=== PATIENT | male | born 1935 | race Caucasian/White ===

== ENCOUNTER 2017-11-04 08:38 | Observation (INO) | payer MEDICARE, OTHER ==
[2017-11-04 09:29] LABS: #Eosinphils 0.1 thou/uL (0.0-0.7); #Lymphocytes 1.8 thou/uL (1.20-3.40); #Monocytes 0.3 thou/uL (0.11-0.59); #Neutrophils 3.1 thou/uL (1.40-6.50); %Basophils 0.3 % (0.0-1.0); %Eosinophils 2.2 % (0.0-10.0); %Lymphocytes 33.8 % (21.0-51.0); %Monocytes 5.5 % (0.0-10.0); %Neutrophils 58.2 % (42.0-75.0); Hemoglobin 14.8 g/dL (14.0-18.0); Mean Corpuscular HGB CONC 33.5 g/dL (32.0-36.0); Mean Corpuscular Hemoglobin 31.7 pg (27.0-31.0); Mean Corpuscular Volume 94.4 fL (78.0-98.0); Mean Platelet Volume 7.3 fL (7.4-10.4); Platelet Count 195 thou/uL (130-400); RBC Distribution Width 11.9 % (11.5-14.5); Red Blood Cell (RBC) Count 4.69 mill/uL (4.70-6.10); White Blood Cell (WBC) Count 5.3 thou/uL (4.8-10.8)
--- NOTE | 2017-11-04 09:44 | RAD ---
SINGLE VIEW OF THE CHEST: Comparison: 05-15-14 History: Chest pain and tightness for two weeks. FINDINGS: Single view of the chest shows a normal sized cardiomediastinal silhouette. There is no evidence of c onsolidation, mass, or pleural effusion. The bones are unremarkable. IMPRESSION: No evidence of acute cardiopulmonary disease. POS: [facility]
[2017-11-04 09:51] LABS: ALT (SGPT) 11 U/L (8-55); AST (SGOT) 17 U/L (5-34); Albumin 4.3 g/dL (3.4-4.8); Alkaline Phosphatase 61 U/L (40-150); Anion Gap 13 mmol/L (10-20); BUN (Urea Nitrogen) 12 mg/dL (8.4-25.7); CK (CPK) 118 U/L (30-200); Calc. Creatinine Clearance 0 mL/min (70-130); Calcium 9.3 mg/dL (7.8-10.44); Carbon Dioxide 24 mmol/L (23-31); Chloride 108 mmol/L (98-107); Estimated GFR-MDRD 63; Globulin 1.9 g/dL (2.4-3.5); Glucose 113 mg/dL (83-110); Lipase 19 U/L (8-78); Protein, Total 6.2 g/dL (5.8-8.1); Sodium 141 mmol/L (136-145)
[2017-11-04 09:56] LABS: CKMB 2.4 ng/mL (0-6.6); Troponin I Less than 0.010 ng/mL (< 0.028)
[2017-11-04 13:19] LABS: Troponin I Less than 0.010 ng/mL (< 0.028)
[2017-11-04 14:29] VITALS: BMI 23.8
[2017-11-04] MEDS ORDERED: Prevnar 13-Val Conj/PF 0.5 ML SYRINGE IM ONE (15:15)
[2017-11-04 16:46] LABS: Troponin I Less than 0.010 ng/mL (< 0.028)
[2017-11-04] MEDS ORDERED: Ondansetron ODT 4 MG TAB PO PRN (20:12)
[2017-11-04] MEDS ORDERED: hydrALAZINE 20 MG/ML VIAL SLOW IVP PRN (20:12)
[2017-11-04] MEDS ORDERED: Ondansetron HCl/PF 4 MG/2 ML Vial IVP PRN (20:12)
[2017-11-04] MEDS ORDERED: Acetaminophen 500 MG TAB PO PRN (20:12)
[2017-11-04] MEDS ORDERED: cloNIDine 0.1 MG TAB PO PRN (20:12)
[2017-11-04] MEDS: Famotidine 20 MG TAB PO SCH (20:43)
[2017-11-04] MEDS ORDERED: Latanoprost 0.005% Ophth Soln 2.5 ml Bottle EA EYE SCH (21:00)
--- NOTE | 2017-11-05 02:34 | HP ---
DATE OF ADMISSION: 11/04/2017 PRIMARY CARE PROVIDER: John Navarro M.D. CHIEF COMPLAINT: Chest pain. HISTORY OF PRESENT ILLNESS: This is an 82-year-old male who presents to [facility] complaining of left-sided lateral chest wall pain. The patient states the she n is sharp in nature, lasting seconds, but improved with exercise or activity over the last 2 weeks. The patient denied taking any specific home remedies but has been consistent with his regular antihy pertensive regimen and daily aspirin 325 mg. The patient denied any recent trauma, injury, increased activity level, cough, fever, congestion. The patient states he is right hand dominant and denies a ny recent injury. The patient denies any left arm, jaw or diaphoresis associated with the pain. The patient states the quality is sharp in nature, localized to the outer pectoral region. The patient does admit to history of coronary artery disease undergoing cardiac stent placement x2 approximately 2009. The patient admits to prior dual antiplatelet therapy until approximately 3 years prior to thi s evaluation. The patient states his last stress test was approximately 5 years prior to this evalua tion. In the emergency room, the patient underwent general evaluation with serial troponin negative x3. The patient's initial workup was essentially unrevealing. PAST MEDICAL HISTORY: 1. Coronary artery disease status post cardiac stent placement x2. 2. Hypertension. 3. Hyperlipidemia. 4. History of renal lithiasis. 5. Hyperlipidemia. 6. History of prostate cancer. PAST SURGICAL HISTORY: 1. Status post cardiac stent placement x2. 2. Status post cardiac angioplasty. 3. Status post cholecystectomy. CURRENT MEDICATIONS: 1. Enteric-coated aspirin 325 mg daily. 2. Zetia 10 mg p.o. daily. 3. Latanoprost 0.005% 1 drop to each eye at bedtime. 4. Toprol-XL 100 mg p.o. daily. 5. Omeprazole 40 mg p.o. daily. 6. Altace 2.5 mg p.o. daily. 7. Crestor 40 mg p.o. daily. ALLERGIES: No known drug allergies. FAMILY HISTORY: Positive for hypertension. SOCIAL HISTORY: , resides in [place], [place]. 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 No current alcohol, tobacco or illicit drug use. Functional of all activities of daily living. Walks up to 2 miles daily. REVIEW OF SYSTEMS: The following complete review of systems was negative, unless otherwise mentioned in the HPI or below: Constitutional: Weight loss or gain, ability to conduct usual activities. Sk in: Rash, itching. Eyes: Double vision, pain. ENT/Mouth: Nose bleeding, neck stiffness, pain, ten derness. Cardiovascular: Palpitations, dyspnea on exertion, orthopnea. Respiratory: Shortness of breath, wheezing, cough, hemoptysis, fever or night sweats. Gastrointestinal: Poor appetite, abdomi nal pain, heartburn, nausea, vomiting, constipation, or diarrhea. Genitourinary: Urgency, frequency , dysuria, nocturia. Musculoskeletal: Pain, swelling. Neurologic/Psychiatric: Anxiety, depression . Allergy/Immunologic: Skin rash, bleeding tendency. Otherwise negative except as stated per HPI. PHYSICAL EXAMINATION: VITAL SIGNS: On admission, blood pressure 155/67, pulse 57, respiratory rate 16, temperature 98.5 de grees Fahrenheit, O2 saturation 96% on room air. GENERAL APPEARANCE: This is an 82-year-old female, alert and oriented x3, pleasant, conver kwaku, in no acute distress. HEENT: Pupils are equal, round, and reactive to light and accommodation. Extraocular muscles are in tact. No scleral icterus, no conjunctival injection. Nares patent. OP is clear. Teeth in good rep air. NECK: Supple, no cervical adenopathy, no thyromegaly, no carotid bruits, no JVD appreciated. Cervic al spine with full active and passive range of motion. No meningeal signs appreciated. CHEST: Lungs are clear to auscultation bilaterally. CARDIOVASCULAR: S1, S2, without noted murmur, rub or gallop. ABDOMEN: Rounded, soft, nontender, nondistended. Bowel sounds are positive in all four quadrants. No hepatosplenomegaly, no abdominal bruits, no rebound or guarding appreciated. EXTREMITIES: Warm and dry with fair turgor. No clubbing, cyanosis or asymmetric edema appreciated. Pulses palpable distally at the dorsalis pedis, posterior tibial, and popliteal arteries bilaterally . Capillary refill less than 2 seconds. NEUROLOGIC: Cranial nerves II-XII are grossly intact. No focal or lateralizing signs appreciated. PERTINENT LABORATORY AND X-RAY FINDINGS: Complete metabolic profile within normal limits. Troponin I negative x3. CBC within normal limits. Portable chest x-ray dated 11/04/2017 showed no acute card iopulmonary process. EKG dated 11/04/2017 by my interpretation shows sinus bradycardia with heart ra hanny in the 40s to 50s. Attenuated R waves noted in the precordial leads. Rightward axis. No acute ST-T wave changes appreciated. ASSESSMENT AND PLAN: 1. Chest pain. The patient was placed in observation status on the telemetry unit. We will proceed with exercise Cardiolite stress testing in the a.m. Check 2D transthoracic echocardiogram for eject ion fraction and wall motion assessment. Check fasting lipid profile in the a.m. Continue aspirin 3 25 mg daily. 2. Hypertension. Continue serial blood pressure monitoring. Hold metoprolol XL. Pending exercise Cardiolite stress testing. 3. Sinus bradycardia. Hold Toprol-XL and monitor heart rate response. Likely iatrogenic. 4. Coronary artery disease, chronic and stable. See #1 above. 5. Hyperlipidemia. Resume Zetia and Crestor 40 mg daily. Check fasting lipid profile in the a.m. 6. Prophylaxis. Sequential compression devices while in bed. Pepcid 20 mg p.o. b.i.d. 7. Code status is FULL. Surrogate medical decision maker is patient's spouse.
[2017-11-05 05:06] LABS: Cardiac Risk 2.7 (Less than 4.5)
[2017-11-05] MEDS ORDERED: Ezetimibe 10 MG TAB PO SCH (09:00)
[2017-11-05] MEDS ORDERED: Rosuvastatin 10 MG TAB PO SCH ×2 (09:00→21:00)
[2017-11-05] MEDS ORDERED: Aspirin 325 MG TAB PO SCH (09:00)
[2017-11-05] MEDS: Ramipril 5 MG CAP PO SCH ×2 (12:28→12:32)
[2017-11-05] MEDS: Famotidine 20 MG TAB PO SCH (12:29)
[2017-11-05 12:34] VITALS: BP 160/64
[2017-11-05 12:46] VITALS: TEMP 98
--- NOTE | 2017-11-05 14:49 | NM ---
RADIONUCLIDE STRESS AND REST MYOCARDIAL PERFUSION SCAN WITH CT ATTENUATION CORRECTION AND SPECT IMAGI NG WITH LEFT VENTRICULAR WALL MOTION EVALUATION AND EJECTION FRACTION: HISTORY: Chest pain. FINDINGS: Ralph protocol with total test time of 7:00. Maximum heart rate 125 beats/minute. Heterogeneous uptake of radiotracer throughout the left ventricular myocardium on both the stress and rest images. No focal perfusion defect or reversibility. QGS analysis of gated SPECT images shows no focal wall motion abnormalities. TID equals 1.2. LHR equa ls 16%. Left ventricular ejection fraction is calculated at 60%. IMPRESSION: 1. Normal myocardial perfusion scan. 2. Normal LVEF. POS: [facility]
--- NOTE | 2017-11-05 23:15 | DIS ---
DATE OF ADMISSION: 11/04/2017 DATE OF DISCHARGE: 11/05/2017 DISCHARGE DIAGNOSES: 1. Chest pain, musculoskeletal. 2. Hypertension, stable. 3. Coronary artery disease, chronic and stable. 4. Hyperlipidemia, stable. 5. Sinus bradycardia secondary to beta stefania therapy. CONSULTATIONS: None. PERTINENT LABORATORY AND X-RAY FINDINGS: Complete metabolic profile within normal limits. Troponin I negative x3. Total cholesterol 115, triglycerides 103, HDL 42, LDL 52. CBC within normal limits. Portable chest x-ray dated 11/04/2017 showed no acute cardiopulmonary process. Exercise Cardiolite stress testing dated 11/05/2017 showed no evidence of reversible or fixed ischemia with calculated ej ection fraction of 60%. HOSPITAL COURSE: The patient was observed on the telemetry unit after initially presenting with jessica p left-sided chest pain. The patient underwent serial cardiac enzymes, which were negative x3 procee ding to exercise Cardiolite stress testing showing no evidence of reversible or fixed ischemia with c alculated ejection fraction of 60%. Telemetry monitoring showed sinus mechanism with sinus bradycard ia ranging from 50s to 60s. The patient underwent a cardiac stress testing using Ralph protocol achi eving 90% of maximal age predicted heart rate. Overall, the patient remained clinically stable throu ghout the hospital course. The patient's symptoms consistent with musculoskeletal chest pain. Of ex am, the patient at the time of discharge and discussed followup instructions at which point patient v erbalizes understanding and in agreement. The patient is ready for discharge on 11/05/2017. DISCHARGE MEDICATIONS: 1. Enteric coated aspirin 325 mg p.o. daily. 2. Zetia 10 mg p.o. daily. 3. Xalatan 0.005% one drop each eye at bedtime. 4. Toprol-XL 100 mg p.o. daily. 5. Omeprazole 40 mg p.o. daily. 6. Altace 2.5 mg p.o. daily. 7. Crestor 40 mg p.o. daily. FOLLOWUP: Patient to follow up with his primary care provider, Dr. John Navarro within 7 days of mariza haji. The patient may follow up with his primary wire coater, Dr. Daljit Larson on a routine b asis. CONDITION ON DISCHARGE: Stable. ACTIVITY: Ad missy. DIET: Heart healthy. CODE STATUS: Full. DISPOSITION: Home 11/05/2017.
--- NOTE | 2017-11-07 21:46 | EKG ---
Test Reason : Blood Pressure : / mmHG Vent. Rate : 046 BPM Atrial Rate : 046 BPM P-R Int : 176 ms QRS Dur : 094 ms QT Int : 436 ms P-R-T Axes : 066 096 046 degrees QTc Int : 381 ms Sinus bradycardia Rightward axis Cannot rule out Anterior infarct , age undetermined Abnormal ECG Confirmed by LEONARDO Espinoza, VENUS ([id number]), managing editor TEMITOPE COMER ([id number]) on 11/07/2017 9:46:29 PM Referred By: Confirmed By:VENUS PATTERSON M.D.
--- NOTE | 2017-11-07 21:55 | EKG ---
Test Reason : Blood Pressure : / mmHG Vent. Rate : 050 BPM Atrial Rate : 050 BPM P-R Int : 162 ms QRS Dur : 100 ms QT Int : 440 ms P-R-T Axes : -05 -34 043 degrees QTc Int : 401 ms Sinus bradycardia with Premature atrial complexes Left axis deviation No STEMI Abnormal ECG Confirmed by LEONARDO Espinoza, VENUS ([id number]), photo editor TEMITOPE COMER ([id number]) on 11/07/2017 9:55:43 PM Referred By: Confirmed By:VENUS PATTERSON M.D.
== END 2017-11-05 15:40 | disposition home or self-care (01) ==
LOC: ERS 08:38 → 2SW 10:47 → 2NO 16:08 → 2SW 16:11
PROVIDERS: ADMIT Family Medicine; ATTEND Family Medicine
DX: R07.89 Other chest pain (principal); I10 Essential (primary) hypertension; E78.5 Hyperlipidemia, unspecified; I25.10 Atherosclerotic heart disease of native coronary artery without angina pectoris; Z79.899 Other long term (current) drug therapy
CPT/HCPCS: 36415; 71045; 78452; 80053; 80061; 82553; 83690; 84484; 85025; 90471; 90670; 93005; 93017; 94760; A9500; G0009; G0378